=== PATIENT | female | born 1950 | race Caucasian/White ===

== ENCOUNTER 2017-05-18 07:11 | Day surgery (SDC) | payer OTHER ==
[2017-05-16 11:16] VITALS: BMI 42.0
[2017-05-18 07:33] VITALS: TEMP 98.2
[2017-05-18] MEDS ORDERED: MIDAZOLAM HCL 2 MG/2 ML SINGLE DOSE VIAL ONE ×2 (08:05→08:06)
[2017-05-18] MEDS ORDERED: PROPOFOL 20 ML ONE ×4 (08:05)
[2017-05-18] MEDS ORDERED: LIDOCAINE HCL 2% JELLY 10 ML CARTRIDGE ONE (08:10)
[2017-05-18] MEDS ORDERED: ceFAZolin SODIUM 1 GM VIAL IVPB ONE (08:48)
[2017-05-18] MEDS ORDERED: ONABOTULINUMTOXINA 200 UNIT/VIAL VIAL IM ONE (09:00)
--- NOTE | 2017-05-18 09:11 | HP ---
DATE OF ADMISSION: 05/18/2017 HISTORY OF PRESENT ILLNESS: Patient is a 66-year-old female with a history of overactive bladder not responding to medications or exercise. Patient also underwent office-based percutaneous tibial nerve neuromodulation without any success. Presently, she is admitted to undergo Botox bladder injections. PAST MEDICAL HISTORY: She does have a history of high blood pressure and gastroesophageal reflux disease. She is . She has undergone a breast procedure and underwent chemotherapy in 2013. SOCIAL HISTORY: Denies ethanol or tobacco. ALLERGIES: Patient denies any allergies. There is a possible allergy to LEVAQUIN which is stated in her medical clearance. PHYSICAL EXAMINATION: General: Revealed a well-developed middle-aged female in no distress. Abdomen: Soft. No CVA tenderness. Pelvic: Revealed a cystorectocele, grade 1, with atrophic vaginitis. No pelvic masses were noted. Meatus is adequate. Bulbocavernosus reflex is brisk. Saddle sensation is present. IMPRESSION: At present is overactive bladder resistant to medication therapy. PLAN: Botox bladder injections. Elie [id number]
[2017-05-18] MEDS ORDERED: ACETAMINOPHEN 325 MG TABLET (FP) PO PRN ×2 (09:16→09:17)
[2017-05-18] MEDS ORDERED: ONDANSETRON 4 MG/2 ML VIAL IVPUSH PRN (09:16)
[2017-05-18] MEDS ORDERED: SULFAMETHOXAZOLE/TRIMETHOPRIM 800MG/160MG D.S. TABLET PO ONE (09:18)
[2017-05-18] MEDS ORDERED: OXYBUTYNIN CHLORIDE 5 MG TABLET PO ONE (09:19)
[2017-05-18] MEDS ORDERED: PHENAZOPYRIDINE HCL 100 MG TABLET (FP) PO ONE (09:19)
--- NOTE | 2017-05-18 09:26 | OP ---
Operative Note - Note: Operative Date: 05/18/17 Operation: cysto.,dil. of urethra and botox inj. of urinary bladder Implants: urethral stricture,squ.meteplasia of bladder, and gr. 1-2 trabiculation of bladder Post-Operative Diagnosis: Same as Pre-op Surgeon: Orly Juarez Anesthesia: General Specimens Removed: urine for c/s Estimated Blood Loss (mls): 0 Instrument used (Debridements only): 100u of botox. in 20cc of dilutent Drains & Tubes with Location: none Drains, Volume Out (mls): 0 Blood Volume Replaced (mls): 0 Fluid Volume Replaced (mls): 0 Operative Report Dictated: Yes
[2017-05-18] MEDS ORDERED: LACTATED RINGERS SOLUTION 1,000 ML IV SCH (09:30)
--- NOTE | 2017-05-18 10:32 | OP ---
DATE OF OPERATION: 05/18/2017 PREOPERATIVE DIAGNOSIS: Overactive bladder, urgency, incontinence, resistant to medication and exercise. POSTOPERATIVE DIAGNOSIS: Overactive bladder, urgency, incontinence, resistant to medication and exercise, with urethral stricture disease. OPERATIVE PROCEDURE: Cystourethroscopy, urethral dilation, and bladder injection of Botox/botulinum 100 units. ANESTHESIA: General. DESCRIPTION OF PROCEDURE: Under above stated anesthesia, patient was prepped and draped in the usual sterile manner. She was placed in the dorsal lithotomy position. Inspection of the external genitalia revealed atrophic vaginitis with a grade 1 cystorectocele. The meatus appeared to be scarred. Therefore, [place] sounds were introduced. The meatus was calibrated to 18-Tristanian and dilated to 26-Tristanian without difficulty or bleeding. The cystoscope was then introduced. Urine was collected for culture and sensitivity. Inspection of the bladder revealed a grade 1 trabeculation. There was also squamous metaplasia of the trigone. Ureteral orifices were within normal limits with efflux of clear urine. No lesions were noted. No calculi were seen. Then, 100 units of Botox was mixed with 20 mL of sterile water, and 4 lines of 1 mL injections were placed right above the ureteral orifices from the right to the left side moving on up 2 cm. A total of 4 rows of 5 mL were injected into the bladder submucosally. No bleeding was noted. The bladder was then emptied. The scope was removed. The patient tolerated the procedure well. She returned to the recovery room in good condition. Elie [id number]
[2017-05-18 11:32] VITALS: BP 144/72; PULSE 73
== END 2017-05-18 12:10 | disposition home or self-care (01) ==
LOC: JASU-SURG 07:11
PROVIDERS: ATTEND Urology
PROC: 3E0K8GC Introduction of Other Therapeutic Substance into Genitourinary Tract, Via Natural or Artificial Opening Endoscopic (ICD-10-PCS; principal; 2017-05-18 08:30)
DX: N32.81 Overactive bladder (principal); N39.41 Urge incontinence
CPT/HCPCS: 52287; J0585; 87086; 94760

== ENCOUNTER 2018-05-09 13:09 | Emergency (ER) | payer OTHER ==
--- NOTE | 2018-05-09 13:27 | PDOC ---
Rapid Medical Evaluation Medical Evaluation: Allergies Allergy/AdvReac Type Severity Reaction Status Date / Time levofloxacin [From Levaquin] Allergy Intermediate Rash Verified 01/01/14 19:41 Quinolones Allergy Verified 05/18/17 07:50 corbaplatinum Allergy Rash Uncoded 01/01/14 19:41 I have performed a brief in-person evaluation of this patient. The patient presents with a chief complaint of: c/o cough that started 5 days with white-yellow phlegm; has CP only with coughing; saw PCP on 05/06 and was prescribed Azithromycin which did not help Pertinent physical exam findings: Lungs CTA B/L, cardio RRR I have ordered the following: CXR The patient will proceed to the ED for further evaluation. 05/09/18 13:22
[2018-05-09 13:29] VITALS: BP 136/73; PULSE 99; TEMP 98.9; BMI 40.4
[2018-05-09] MEDS ORDERED: IBUPROFEN 600 MG TABLET (FP) PO ONE ×2 (14:51→14:52)
--- NOTE | 2018-05-09 15:00 | PDOC ---
History of Present Illness - General Chief Complaint: Cold Symptoms Stated Complaint: CHEST PAIN Time Seen by Provider: 05/09/18 14:42 History Source: Patient Exam Limitations: No Limitations - History of Present Illness Initial Comments: Patient is a 67-year-old female who states that she has had a cough for a week. She followed up with her family physician who placed her on a Z-Rene. Tomorrow is her last day of the antibiotic however she continues to have a nonproductive cough. She denies fever, denies sick contacts or recent international travel. She does admit to pain when she is coughing on the anterior and posterior chest. Patient denies any relieving or relieving factors. 05/09/18 14:52 Past History - Travel Traveled outside of the country in the last 30 days: No Close contact w/someone who was outside of country & ill: No - Past Medical History Allergies/Adverse Reactions: Allergies Allergy/AdvReac Type Severity Reaction Status Date / Time levofloxacin [From Levaquin] Allergy Intermediate Rash Verified 01/01/14 19:41 Quinolones Allergy Verified 05/18/17 07:50 corbaplatinum Allergy Rash Uncoded 01/01/14 19:41 Home Medications: Ambulatory Orders Acetaminophen [Tylenol .Regular Strength -] 650 mg PO Q6H PRN #30 tablet Amlodipine Besylate [Norvasc -] 5 mg PO DAILY #30 tablet 12/29/13 Anastrozole [Arimidex -] 1 mg PO DAILY 05/16/17 Calcium 250Mg/Vit-D 125 Units [Oscal 250 mg+D -] 1 tab PO DAILY 05/16/17 Mirabegron [Myrbetriq] 25 mg PO DAILY 05/16/17 Multivitamins [Tab-A-Vit -] 1 tab PO DAILY 05/16/17 [place]-3 Fatty Acids [[place]-3] 1,000 mg PO DAILY 05/16/17 Hydrocodone/Chlorphen P-Stirex [Tussionex Pennkinetic Susp] 5 ml PO HS #60 ml MDD 10 ml 05/09/18 Anemia: No Asthma: No Cancer: Yes (RIGHT BREAST) Cardiac Disorders: No CVA: No COPD: No CHF: No Dementia: No Diabetes: No GI Disorders: Yes (gerd) Disorders: No HTN: Yes (BORDERLINE/ON MEDICATIONS) Hypercholesterolemia: Yes Liver Disease: No Seizures: No Thyroid Disease: No - Surgical History Abdominal Surgery: No Appendectomy: No Cardiac Surgery: No Cholecystectomy: No Lung Surgery: No Neurologic Surgery: No Orthopedic Surgery: No - Immunization History Td Vaccination: Yes Immunization Up to Date: Yes - Suicide/Smoking/Psychosocial Hx Smoking Status: No Smoking History: Never smoked Years of Tobacco Use: 0 Have you smoked in the past 12 months: No Number of Cigarettes Smoked Daily: 0 Cigars Per Day: 0 Information on smoking cessation initiated: No Hx Alcohol Use: No Drug/Substance Use Hx: No Substance Use Type: None Hx Substance Use Treatment: No Review of Systems - Review of Systems Able to Perform ROS?: Yes Constitutional: No: Chills, Fever, Night Sweats, Unexplained wgt Loss Respiratory: Yes: Cough. No: Shortness of Breath, SOB at Rest, Wheezing, Hemoptysis Cardiac (ROS): No: Chest Pain, Irregular Heart Rate, Palpitations All Other Systems: Reviewed and Negative *Physical Exam - Vital Signs Last Vital Signs Temp Pulse Resp BP Pulse Ox 98.9 F 99 H 16 136/73 97 05/09/18 13:24 05/09/18 13:24 05/09/18 13:24 05/09/18 13:24 05/09/18 13:24 - Physical Exam Comments: Constitutional: VS stated, pt appears in no apparent distress; sitting in chair. Able to speak in complete sentences without becoming short of breath. Skin: Warm and dry. Intact, no lesions or excoriations. Head: Normocephalic; atraumatic Eyes: conjunctiva pink without injection or discharge. Ears: No tenderness present. Canals without injection or discharge; TM clear, no retractions or bulging. Nose: Patent, mucosa pink. No drainage. Sinuses: No tenderness over frontal and maxillary sinuses. Throat: Oropharynx with pink and moist mucosa. Dentition good. No pharyngeal edema; erythema or exudate. Tongue normal, no fasciculations. Airway Patent. Hypoglossal area is soft. Uvula is midline. No trismus. Neck: Supple, non-tender, with full ROM, trachea midline, no anterior/posterior cervical chain lymphadenopathy, thyroid nonpalpable. No stridor or bruits. Chest: Normal AP diameter, symmetrical excursions bilaterally, no retractions or bulging of the intercostal spaces. Pt has pain upon palpation to the anterior/posterior chest. Lungs: Bilateral breath sounds clear upon auscultation. No adventitious breath sounds. Heart: Regular rate and rhythm, S1/S2 auscultated. No murmurs, rubs, or gallops. No visible pulsations, heaves, or lifts on precordium. Musculoskeletal: Moves all extremities without difficulty. Neurologic: Awake, alert. Conversation fluent. Psych: Appropriate affect. 05/09/18 14:53 Moderate Sedation - Procedure Monitoring Vital Signs: Procedure Monitoring Vital Signs Temperature 98.9 F 05/09/18 13:24 Pulse Rate 99 H 05/09/18 13:24 Respiratory Rate 16 05/09/18 13:24 Blood Pressure 136/73 05/09/18 13:24 O2 Sat by Pulse Oximetry (%) 97 05/09/18 13:24 ED Treatment Course - RADIOLOGY Chest X-Ray Result: No Infiltrates Medical Decision Making - Medical Decision Making 05/09/18 14:55 The RME PA ordered an EKG which was reviewed by myself and signed off by the attending MD as negative. Pt's VS and PE are WNL. I do not think she needs any additional workup at this time. Pt denies CP at present. *DC/Admit/Observation/Transfer Diagnosis at time of Disposition: Bronchitis - Discharge Dispostion Disposition: HOME Condition at time of disposition: Stable Decision to Admit order: No - Prescriptions Prescriptions: Hydrocodone/Chlorphen P-Stirex [Tussionex Pennkinetic Susp] 5 ml PO HS #60 ml MDD 10 ml - Referrals Referrals: ON STAFF,NOT [Primary Care Provider] - - Patient Instructions Printed Discharge Instructions: DI for Viral Upper Respiratory Infection -- Adult Additional Instructions: For your discomfort you can take Tylenol 650 mg every 4 hours and ibuprofen 600 mg every 6 hours. Take cough syrup at bedtime only. The cough syrup will make you sleepy. Do not drive, drink alcohol or do anything where you need to concentrate. Follow-up with your primary care physician. - Post Discharge Activity
--- NOTE | 2018-05-10 11:27 | EKG ---
Test Reason : Blood Pressure : / mmHG Vent. Rate : 091 BPM Atrial Rate : 091 BPM P-R Int : 166 ms QRS Dur : 078 ms QT Int : 364 ms P-R-T Axes : 047 -18 078 degrees QTc Int : 447 ms NORMAL SINUS RHYTHM ANTEROSEPTAL INFARCT (CITED ON OR BEFORE 22-DEC-2013) ABNORMAL ECG WHEN COMPARED WITH ECG OF 22-DEC-2013 21:29, NO SIGNIFICANT CHANGE WAS FOUND Confirmed by SILVIA KEANE MD ([id number]) on 05/10/2018 11:26:50 AM Referred By: Confirmed By:SILVIA KEANE MD
== END 2018-05-09 15:05 | disposition home or self-care (01) ==
LOC: JERFT 13:09
DX: J40 Bronchitis, not specified as acute or chronic (principal); I10 Essential (primary) hypertension; K21.9 Gastro-esophageal reflux disease without esophagitis; E78.00 Pure hypercholesterolemia, unspecified; Z85.3 Personal history of malignant neoplasm of breast
CPT/HCPCS: 71046-TC-FY; 93005; 93010; 99281-25

== ENCOUNTER → 2018-08-29 | Day surgery (SDC) | payer OTHER ==
--- NOTE | 2018-08-30 20:19 | PATH ---
Surgical Pathology Report Patient Name: ZULY JUAREZ [facility]. Rec. #: [id number] /Age/Gender: 1950 (Age: 67) / F Account: [id number] Location: [facility] Taken: 08/29/2018 Received: 08/29/2018 Reported: 08/30/2018 Physicians: Elie Donnelly M.D. Specimen(s) Received A: RIGHT BREAST SPECIMEN WITH CALCIFICATIONS B: RIGHT BREAST SPECIMEN WITHOUT CALCIFICATIONS Clinical History Nonpalpable lesion Mammographic findings: Microcalcification, suspicious Final Diagnosis A. BREAST, RIGHT, WITH CALCIFICATIONS, STEREOTACTIC CORE BIOPSY: BENIGN BREAST PARENCHYMA WITH STROMAL FIBROSIS, FOCAL HEMORRAGE, AND RARE MICROCALCIFICATIONS. B. BREAST, RIGHT, WITHOUT CALCIFICATIONS, STEREOTACTIC CORE BIOPSY: BENIGN BREAST PARENCHYMA WITH STROMAL FIBROSIS, FOCAL HEMORRAGE, AND RARE MICROCALCIFICATIONS. Comment: Multiple deeper levels have been examined. Electronically Signed Zuly Dumont M.D. Gross Description A. Received in formalin labeled "right breast with calcifications," are 4 neumann-yellow, cylindrical portions of fibroadipose tissue ranging from 0.5-2.0 cm in length and averaging 0.3 cm in diameter. The specimens are submitted in toto in one cassette. B. Received in formalin labeled "right breast without calcifications," are 6 neumann-yellow, cylindrical portions of fibroadipose tissue ranging from 0.5-1.8 cm in length and averaging 0.3 cm in diameter. The specimens are submitted in toto in 2 cassettes. Time to formalin fixation: 5 minutes Total formalin fixation time: Approximately 7 hours. /08/29/201808/29/2018
== END | disposition home or self-care (01) ==
LOC: FMAMMOTONE 09:27
PROVIDERS: ATTEND Surgery Surgical Oncology
PROC: 0HBT3ZX Excision of Right Breast, Percutaneous Approach, Diagnostic (ICD-10-PCS; principal; 2018-08-29)
DX: R92.1 Mammographic calcification found on diagnostic imaging of breast (principal); N64.59 Other signs and symptoms in breast; N60.31 Fibrosclerosis of right breast
CPT/HCPCS: 19081; 88305-TC

== ENCOUNTER 2019-02-11 09:58 | Day surgery (SDC) | payer OTHER ==
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
[2019-02-07 09:24] VITALS: BMI 41.7
[2019-02-11] MEDS ORDERED: LIDOCAINE HCL/PF 2% SDV 5ML VIAL ONE (13:42)
[2019-02-11] MEDS ORDERED: PROPOFOL 20 ML ONE (13:42)
[2019-02-11] MEDS ORDERED: KETOROLAC TROMETHAMINE 30 MG/1 ML VIAL ONE (14:14)
[2019-02-11] MEDS ORDERED: DEXAMETHASONE SOD PHOSPHATE 4 MG/1 ML VIAL ONE (14:14)
[2019-02-11] MEDS ORDERED: ONDANSETRON 4 MG/2 ML VIAL ONE (14:14)
[2019-02-11] MEDS ORDERED: BUPIVACAINE HCL/PF 0.25% (2.5MG/ML) 10 ML VIAL IJ ONE (14:45)
[2019-02-11] MEDS ORDERED: ONDANSETRON 4 MG/2 ML VIAL IVPUSH PRN ×2 (15:05→15:14)
[2019-02-11] MEDS ORDERED: KETOROLAC TROMETHAMINE 30 MG/1 ML VIAL IVPUSH PRN (15:05)
[2019-02-11] MEDS ORDERED: PROMETHAZINE HCL 25 MG/1 ML VIAL IVPUSH PRN (15:14)
[2019-02-11] MEDS ORDERED: oxyCODONE HCL 5 MG TABLET PO PRN ×2 (15:14)
[2019-02-11] MEDS ORDERED: DEXTROSE 5%-0.45% SALINE 1,000 ML IV SCH (15:15)
[2019-02-11 16:42] VITALS: BP 133/80; PULSE 75; TEMP 97.7
--- NOTE | 2019-02-11 18:48 | OP ---
DATE OF OPERATION: 02/11/2019 PREOPERATIVE DIAGNOSIS: Right breast microcalcifications, increasing. POSTOPERATIVE DIAGNOSIS: Right breast microcalcifications, increasing. PROCEDURE: Right mammographically localized biopsy. ANESTHESIA: General intubated. SURGEON: Seven Harvey MD OPERATIVE REPORT: Patient was made aware of the risks and benefits of the procedure and consented. Preoperatively, patient went to radiology suite where under mammogram localization, a needle and wire were placed next to the indexed calcifications. She was then placed in a supine position on the operating room table, and after general anesthesia was induced, the patient was intubated. The operative site was prepped and draped in the usual sterile fashion. Curvilinear incision was made next to the needle. Using electrocautery, thick skin flaps were made, and the needle was withdrawn through the puncture site and a wire through the wound. The tissues around the wire were then sharply excised and submitted with a short suture superior, long suture lateral. Specimen radiograph confirmed the presence of the clip and the indexed microcalcifications. This was then submitted for permanent section. The wound was copiously irrigated with normal saline. Hemostasis maintained by electrocautery. Palpation of the wound showed no other suspicious areas. The wound was then closed with deep 3-0 Vicryl followed by a running subcuticular 4-0 Monocryl. Steri-Strips, sterile dressing, and a compression bra were then applied, and the patient having tolerated the procedure well was transferred to the recovery room in excellent condition. SEVEN HARVEY M.D. [id number]
--- NOTE | 2019-02-13 17:15 | PATH ---
Surgical Pathology Report Patient Name: SOLANGE JUAREZ [facility]. Rec. #: [id number] /Age/Gender: 1950 (Age: 68) / F Account: [id number] Location: [facility] Taken: 02/11/2019 Received: 02/11/2019 Reported: 02/13/2019 Physicians: Seven Harvey M.D. Specimen(s) Received RIGHT BREAST WIDE EXCISION Clinical History Non-palpable lesion. Mammographic findings: Microcalcifications Final Diagnosis Breast, right, wide excision: Invasive ductal carcinoma, poorly differentiated (tubule score: 3/3, nuclear grade: 3/3, mitotic score: 2/3, total score: 8/9; Callaway grade 3). (See note) Invasive carcinoma measures 1.1 cm in greatest dimension, microscopically. Ductal carcinoma in situ (DCIS), cribriform and micropapillary type, intermediate nuclear grade, with moderate necrosis and associated calcificationS, IS present admixed with invasive carcinoma and away from it. Invasive carcinoma is close to (< 1 mm) the medial margin. DCIS is close to (< 1 mm) the inferior and lateral margins. No lymphovascular invasion is identified. Focal changes suggestive of prior biopsy site are present. Pathologic stage (pTNM):pT1c pNx. see also invasive carcinoma case Summary below. Note: The carcinoma is positive for E-Cadherin (performed on block 4, at [facility]), which supports ductal phenotype. Preliminary findings conveyed to Dr. Fisher on 02/13/19. Comments Breast Invasive Carcinoma: Surgical Pathology Case Summary (Based on AJCC TNM 8 th edition) Procedure _X_ Excision (less than total mastectomy) Specimen Laterality _X_ Right Tumor Size _X_ Greatest dimension of largest invasive focus >1 mm (millimeters): 11 mm Histologic Type _X_ Invasive carcinoma of no special type (ductal, not otherwise specified) Histologic Grade (Callaway Histologic Score) Glandular (Acinar)/Tubular Differentiation _X_ Score 3 (<10% of tumor area forming glandular/tubular structures) Nuclear Pleomorphism _X_ Score 3 Mitotic Rate _X_ Score 2 Overall Grade _X_ Grade 3 (scores of 8 or 9) Tumor Focality _X_ Single focus of invasive carcinoma Ductal Carcinoma In Situ (DCIS) _X_ DCIS is present in specimen _X_ Positive for extensive intraductal component ( EIC) Margins Invasive Carcinoma Margins _X_ Uninvolved by invasive carcinoma Distance from closest margin (millimeters): < 1 mm Closest margin: medial DCIS Margins _X_ Uninvolved by DCIS Distance from closest margin (millimeters): < 1 mm Closest margin: inferior and lateral Regional Lymph Nodes _X_ No lymph nodes submitted or found Treatment Effect _X_ No known presurgical therapy Lymphovascular Invasion _X_ Not identified Pathologic Stage Classification (pTNM, AJCC 8th Edition) Primary Tumor (Invasive Carcinoma) (pT) _X_ pT1c: Tumor >10 mm but =20 mm in greatest dimension Regional Lymph Nodes (pN) Category (pN) _X_ pNX: Regional lymph nodes cannot be assessed (eg, not removed for pathological study or previously removed) Biomarker Studies Results of ER and WY studies performed on this specimen (block 4) at [facility] are as follows: ER (clone [id number] mouse monoclonal antibody by [employer]) : >95 % nuclear staining with strong intensity (positive). WY (clone16 mouse monoclonal antibody by [employer]): ~30 % nuclear staining with moderate to strong intensity (positive). Results of Her2 and Ki67 studies will be reported separately in an addendum. Positive and negative controls (internal if applicable) show appropriate results. Formalin fixation time is within current ASCO/CAP recommendations for ER, WY and Her2 testing. Time to formalin fixation (cold ischemic time) is not given. Electronically Signed Jenn Lopez M.D. Addendum Reported: 02/17/2019 Addendum Diagnosis Results of Her2 (IHC) & Ki-67 studies performed on block 4 at [place], [place] ([id number]) are as follows: Her2 IHC (EP3 from [employer], formerly known as [id number], using [employer] Polymer Refine detection kit): 1+ (negative). Ki-67: 35-40% (high proliferative index). Positive and negative controls (internal if applicable) show appropriate results. Jenn Lopez M.D. Gross Description Received in formalin, labeled "right breast, wide excision" is a 4 x 3.7 x 1.5 cm portion of fibrofatty tissue with a localizing needle in place. A long suture designates the lateral margin and a short suture indicates the superior margin, per the surgeon. The specimen is inked as follows: superior-blue, inferior-red, deep-green, lateral-black, medial-orange, anterior-yellow. Sectioning reveals a 1 x 1 x 0.8 cm firm, neumann mass with a central hemorrhagic focus, abutting the medial margin and at 5 mm from the inferior margin. All other margins are widely clear of the mass. The remaining breast tissue is comprised predominantly of adipose tissue with few white fibrotic foci and streaks. The specimen is entirely submitted in eleven cassettes as follows: 1-4-mass with superior, inferior, medial and lateral margins; 5-7- remaining tissue; 8-additional medial margin; 9,10-anterior margin; 11-deep margin. Time to formalin fixation: Not given Total formalin fixation time: Approximately 28 hours
== END 2019-02-11 16:42 | disposition home or self-care (01) ==
LOC: FASU 09:58
PROVIDERS: ATTEND Surgery Surgical Oncology
PROC: 0HBT0ZX Excision of Right Breast, Open Approach, Diagnostic (ICD-10-PCS; principal; 2019-02-11 14:23)
DX: C50.411 Malignant neoplasm of upper-outer quadrant of right female breast (principal); R92.1 Mammographic calcification found on diagnostic imaging of breast; Z17.0 Estrogen receptor positive status [ER+]
CPT/HCPCS: 19281; 82962; 88307-TC; 88342-TC; 94760